=== PATIENT | male | born 1990 | race Caucasian/White ===

== ENCOUNTER 2020-04-11 08:11 | Emergency (ER) | payer SELFPAY ==
[~2020-04-11] VITALS: Ht 177.8 cm; Wt 70.5 kg
[2020-04-11 08:17] VITALS: TEMP 98.2
[2020-04-11] MEDS ORDERED: AMOXICILLIN 50500 MG PO (08:27)
[2020-04-11 08:45] LABS: BASO # 0.1 (0.0-0.2); BASO % 1.5 % (0.0-2.0); EOS # 1.2 (0.0-0.7); EOS % 12.3 % (0-4.0); GRAN # 3.4 (1.4-6.5); GRAN % 35.8 % (42.2-75.2); HEMATOCRIT 46.8 % (42.0-52.0); HEMOGLOBIN 16.3 g/dl (13.5-18.0); LYMPH # 3.8 (1.2-3.4); LYMPH % 40.3 % (20.0-51.0); MEAN CELL VOLUME 91 fl (80.0-100.0); MEAN CORPUSCULAR HEMOGLOBIN 32 pg (27.0-31.0); MEAN CORPUSCULAR HGB CONC 35 g/dl (33.0-37.0); MEAN PLATELET VOLUME 9.8 fl (7.4-10.4); MONO # 0.9 (0.1-0.6); PLATELET COUNT 242 K/mm3 (130-400); RED BLOOD COUNT 5.15 M/mm3 (4.20-5.60); REDCELL DISTRIBUTION WIDTH-CV 11.6 % (11.5-14.5)
[2020-04-11 09:01] LABS: ALBUMIN 4.6 gm/dL (3.5-5.0); BILIRUBIN,TOTAL 0.9 mg/dL (0.0-1.0); CALCIUM 9.7 mg/dL (8.4-10.2); CREATININE, serum 0.84 (0.66-1.25); TOTAL PROTEIN 8.3 gm/dL (6.4-8.2)
[2020-04-11 09:08] LABS: POTASSIUM 2.8 mmol/L (3.4-5.0)
[2020-04-11 09:22] LABS: COLLECTION METHOD CLEAN CATCH
[2020-04-11 09:41] LABS: TRICYCLIC ANTIDEPRESS URINE NEGATIVE
[2020-04-11 10:00] LABS: MUCOUS Present /lpf; PH 6 (5-8); SQUAMOUS EPITHELIAL None Seen /hpf; URINE APPEARANCE Clear; URINE BACTERIA None Seen /hpf; URINE BILIRUBIN Negative (NEGATIVE); URINE BLOOD Negative (NEGATIVE); URINE COLOR Yellow; URINE GLUCOSE Negative (NEGATIVE); URINE KETONE 1+ (NEGATIVE); URINE LEUKOCYTE ESTERASE Negative (NEGATIVE); URINE NITRATE Negative (NEGATIVE); URINE PROTEIN(semi-quant) 1+ (NEGATIVE); URINE RBC 0-2 /hpf; URINE UROBILINOGEN Negative (NEGATIVE)
[2020-04-11 10:01] LABS: TROPONIN-I < 0.012 ng/mL (0.000-0.035)
[2020-04-11] MEDS ORDERED: K-DUR20 MEQ PO (11:23)
[2020-04-11 11:34] VITALS: BP 129/76; PULSE 78
== END 2020-04-11 11:40 | disposition home or self-care (01) ==
LOC: COL.ER 08:11
PROVIDERS: Nurse Practitioner Primary Care
DX: F14.90 Cocaine use, unspecified, uncomplicated (principal); F10.10 Alcohol abuse, uncomplicated; E87.6 Hypokalemia; F12.90 Cannabis use, unspecified, uncomplicated; F17.210 Nicotine dependence, cigarettes, uncomplicated
CPT/HCPCS: J2405; J3480; J7030

== ENCOUNTER 2023-09-30 22:25 | Emergency (ER) | payer SELFPAY ==
[~2023-09-30] VITALS: Ht 177.8 cm; Wt 68.2 kg
[~2023-09-30 22:25] MED LIST: AMOXICILLIN 50500 MG PO; K-DUR20 MEQ PO
[2023-09-30 22:41] VITALS: BP 124/78; PULSE 96; TEMP 98.2
== END 2023-09-30 22:46 | disposition left against medical advice (07) ==
LOC: COL.ER 22:25
DX: R20.0 Anesthesia of skin (principal); R53.81 Other malaise